=== PATIENT | female | born 1975 ===

== ENCOUNTER 2019-07-03 15:30 | Emergency (ER) | payer SELFPAY ==
[2019-07-03 16:07] VITALS: BP 135/80
--- NOTE | 2019-07-03 16:13 | Event Note ---
ED Screening Note Date of service: 07/03/19 Time: 16:10 ED Screening Note: This is a 43 y.o. F. that presents to the ER with numbness and tingling to LUE x 3 days. Reports history of numbness to same arm but never last this long. 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 No significant PMH. This initial assessment/diagnostic orders/clinical plan/treatment(s) is/are subject to change based on patients health status, clinical progression and re- assessment by fellow clinical providers in the ED. Further treatment and workup at subsequent clinical providers discretion. Patient/guardian urged not to elope from the ED as their condition may be serious if not clinically assessed and managed. Initial orders include: Labs
[2019-07-03 16:46] LABS: Basophils # (Auto) 0.1 K/mm3 (0.0-0.1); Basophils % (Auto) 0.8 % (0.0-1.8); Eosinophils # (Auto) 0.2 K/mm3 (0.0-0.4); Eosinophils % (Auto) 1.6 % (0.0-4.3); Hematocrit 37.8 % (30.3-42.9); Hemoglobin 12.2 gm/dl (10.1-14.3); Lymphocytes # (Auto) 2.1 K/mm3 (1.2-5.4); Lymphocytes % (Auto) 18.5 % (13.4-35.0); Mean Corpuscular HGB Conc 32 % (30-34); Mean Corpuscular Volume 78 fl (79-97); Monocytes # (Auto) 0.6 K/mm3 (0.0-0.8); Monocytes % (Auto) 5.7 % (0.0-7.3); Platelet Count 472 K/mm3 (140-440); Red Blood Count 4.87 M/mm3 (3.65-5.03); Red Cell Distribution Width 16.6 % (13.2-15.2)
[2019-07-03 17:05] LABS: BUN/Creatinine Ratio 20; Blood Urea Nitrogen 8 mg/dL (7-17); Calcium 9.4 mg/dL (8.4-10.2); Hemolysis Index 10
--- NOTE | 2019-07-03 17:31 | Emergency Department Report ---
ED General Adult HPI - General Chief complaint: Extremity Injury, Upper Stated complaint: LFT SIDE NUMB Time Seen by Provider: 07/03/19 16:06 Source: patient Mode of arrival: Ambulatory Limitations: No Limitations - History of Present Illness Initial comments: Patient is a 43-year-old F [place] female who states for the last 3 days she has been having off and on numbness to the left hand and arm. States intermittently it will just feel numb as though there is no sensation. She denies any cramping neck pain fevers chills or injury. 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 Patient states she has had this in the past but it resolved and she did not get follow-up. She has no medical problems to her knowledge. - Related Data Allergies Allergy/AdvReac Type Severity Reaction Status Date / Time No Known Allergies Allergy Verified 07/03/19 15:33 ED Review of Systems ROS: Stated complaint: LFT SIDE NUMB Other details as noted in HPI Comment: All other systems reviewed and negative ED Past Medical Hx - Past Medical History Previous Medical History?: No - Surgical History Past Surgical History?: No - Social History Smoking Status: Never Smoker Substance Use Type: None ED Physical Exam - General Limitations: No Limitations General appearance: alert, in no apparent distress - Head Head exam: Present: atraumatic, normocephalic - Eye Eye exam: Present: normal appearance - ENT ENT exam: Present: mucous membranes moist - Neck Neck exam: Present: normal inspection, full ROM. Absent: tenderness - Expanded Upper Extremity Exam Left General: Present: normal inspection Shoulder Exam: Present: normal inspection, full ROM. Absent: tenderness Upper Arm exam: Present: normal inspection, full ROM. Absent: tenderness Elbow exam: Present: normal inspection, full ROM. Absent: tenderness Forearm Wrist exam: Present: normal inspection, full ROM. Absent: tenderness Hand Wrist exam: Present: normal inspection, full ROM. Absent: tenderness Vascular: Present: normal capillary refill. Absent: vascular compromise ED Course Vital Signs 07/03/19 15:37 Temperature 98.1 F Pulse Rate 79 Respiratory 18 Rate Blood Pressure 135/80 O2 Sat by Pulse 98 Oximetry ED Medical Decision Making - Lab Data Result diagrams: 07/03/19 16:14 07/03/19 16:14 - Medical Decision Making Labs were ordered to rule out electrolyte abnormalities causing paresthesia. Patient may have some nerve issues distal to the actual cervical spine. Patient to be given neurology for follow-up and will be discharged home. Critical care attestation.: If time is entered above; I have spent that time in minutes in the direct care of this critically ill patient, excluding procedure time. ED Disposition Clinical Impression: Paresthesia Disposition: DC-01 TO HOME OR SELFCARE Is pt being admited?: No Does the pt Need Aspirin: No Condition: Stable Instructions: Paresthesia (ED) Referrals: HENRIETTA NARVAEZ MD [Referring] - 3-5 Days Time of Disposition: 17:31
== END 2019-07-03 18:05 | disposition home or self-care (01) ==
LOC: ED 15:30
DX: R20.0 Anesthesia of skin (principal)
CPT/HCPCS: 36415; 80048; 82962; 85025; 99283